=== PATIENT | male | born 1995 ===

== ENCOUNTER 2021-01-24 15:05 | Emergency (ER) | payer OTHER ==
[~2021-01-24] VITALS: Ht 162.6 cm; Wt 61.2 kg
[2021-01-24 19:53] VITALS: BP 121/82
[2021-01-24] MEDS ORDERED: TETANUS-DIPTH-ACEL PERTUSSIS 0.5ML SYR Tdap IM ONE (20:15)
[2021-01-24] MEDS ORDERED: ACETAMINOPHEN 500 MG TAB PO ONE (20:15)
[2021-01-24] MEDS ORDERED: IBUPROFEN 800 MG TAB PO ONE (20:15)
== END 2021-01-24 21:33 | disposition home or self-care (01) ==
LOC: ER 15:05
DX: S01.81XA Laceration without foreign body of other part of head, initial encounter (principal); W22.8XXA Striking against or struck by other objects, initial encounter; Y93.89 Activity, other specified; Y92.89 Other specified places as the place of occurrence of the external cause; Y99.0 Civilian activity done for income or pay
CPT/HCPCS: 12011; 90471; 90715